=== PATIENT | female | born 1955 | race Caucasian/White ===

== ENCOUNTER 2017-01-20 17:55 | Emergency (ER) | payer OTHER ==
[~2017-01-20] VITALS: Ht 165.1 cm; Wt 102.3 kg
[~2017-01-20 17:55] MED LIST: ASPI-628 PO; CALC-721 PO; CHOL100045 PO; FISH OIL 500 M1 EAC2 PO; LACT1CAP65 PO; METR45CR TOP; RANI75TA21 PO; [UNRECOGNIZED DRUG - CODE] PO
[2017-01-20 18:05] VITALS: BP 156/98; PULSE 89; RESP 13; O2SAT 98
--- NOTE | 2017-01-20 19:03 | ED.REPORT ---
HPI-Abd Pain F 40 and Over Date of Service Jan 20, 2017 ED Provider: Dr. Kennedy A 61 year old female with a history of cholecystectomy presents to the ED from complaining of RUQ abdominal pain onset 2 weeks ago. In the last 24 hours, she has begun to experience a constant gassy, pressure-like feeling in her lower abdomen. She reports baseline intermittent RUQ abdominal pain every since her cholecystectomy 2 years ago, which she takes Ranitidine for. thought that she might have diverticulitis, however the patient denies any history of diverticulitis. Nursing Notes Stated Complaint: ABDOMINAL PAIN SENT FROM URGENT CARE Chief Complaint: Female Abdominal Pain Nursing Notes Reviewed: Yes Allergies: Coded Allergies: omeprazole (Verified Allergy, Mild, ITCHING, 01/20/17) atropine (Unverified Adverse Reaction, Severe, JITTERY, 12/27/14) ciprofloxacin (Unverified Adverse Reaction, Severe, nervous, edgy, 12/27/14 ) diphenoxylate (Unverified Adverse Reaction, Severe, JITTERY, 12/27/14) Scheduled Aspirin (Aspir 81) 81 Mg Tablet.dr 81 MG PO DAILY Calcium Carbonate/Vitamin D3 (Calcium 500 + D Tablet) 1 Each Tablet 1 EACH PO DAILY Calcium Polycarbophil (Fiber Tabs) 625 Mg Tablet 625 MG PO DAILY 1-3 TABS/DAY Cholecalciferol (Vitamin D3) (Vitamin D) 1,000 Unit Capsule 1,000 UNIT PO DAILY Lactobacillus Acidophilus (Probiotic) 1 Each Capsule 1 EACH PO DAILY Metronidazole (Metronidazole Cream) 45 Gm Cream..g. 1 APPLIC TOP BID 0.75% Ranitidine (Zantac OTC) 75 Mg Tablet 75 MG PO BID [place] Oil/[place]-3 Fatty Acids (Fish Oil 500 mg Softgel) 1 Each Capsule 1 EACH PO DAILY General Time Seen by MD: 19:03 Chief Complaint Abdominal pain Hx Obtained From: Patient Sudden in Onset?: No Onset Occurred: More than a week ago... (2 weeks) Symptom Duration: Since onset Location: : RUQ Severity: Current: Moderate Severity: Maximum: Moderate Recent Healthcare: Recent doctor visit (Patient was sent from ) Similar Sx Previous: No Past Medical History Past Medical History Denies history of diverticulitis. Reports intermittent RUQ abdominal pain ever since cholecystectomy 2 years ago. Thrombophlebitis. Cataracts. Reports: Hypertension, Denies: Diabetes mellitus Past Surgical History Breast reduction. S/P rotator cuff repair. Reports: Cholecystectomy (By Dr. Gonzalez. ), Denies: Hysterectomy Smoking History Never Smoker Social History originally from [place]. Alcohol Use: Denies alcohol use Drug Use: Denies drug use Ambulatory Status Independent Review of Systems Gassy feeling in lower abdomen. Constitutional: Denies: Chills, Fever Respiratory: Denies: Non-productive cough Cardiovascular: Denies: Chest pain GI: Reports: Abdominal pain Complete sys rev & neg: except as marked. Physical Exam Vital Signs Vital Signs (First) Date Time Temp Pulse Resp B/P Pulse Ox O2 Delivery O2 Flow Rate FiO2 01/20/17 18:05 36.7 89 13 156/98 98 Room Air Initial VS: Reviewed General/Constitutional: Awake, Alert Respiratory / Chest: Atraumatic, Breath sounds NL, Breath sounds = bilat, No respiratory distress, No rales, No rhonchi, No wheezing Cardiovascular: Heart rate NL, Regular rhythm, Heart sounds NL, No gallop, No murmurs, No rubs Abdomen: No guarding, No rebound Tenderness/Guarding/Rebound: Positive: Tender RUQ... Back: Atraumatic, Full range of motion Head / Eyes: Atraumatic, Normocephalic, PERRL, EOMI ENT: Atraumatic, Mucous membranes moist Skin: Atraumatic, Color NL, Warm, Dry Neurologic: Oriented X3, Speech NL Upper Extremity / MS: No swelling, No edema Lower Extremity / Pelvis / MS: No swelling, No edema Interpretation & Diagnostics Lab Results Interpretation Result Diagram: 01/20/17193101/20/171931 Test 01/20/17 19:32 White Blood Count 6.2th/mm3 (3.8-10.1) Red Blood Count 4.20mil/mm3 (3.90-5.20) Hemoglobin 13.0g/dL (12.0-15.6) Hematocrit 38.3% (35.0-46.0) Mean Corpuscular Volume 91.2fL (81-100) Mean Corpuscular Hemoglobin 31.0pg (27.0-35.0) Mean Corpuscular Hemoglobin Concent 33.9% (32.0-37.0) Red Cell Distribution Width 13.3% (12.3-15.4) Platelet Count 198bil/L (150-400) Neutrophils (%) (Auto) 68.7% (40-74) Lymphocytes (%) (Auto) 21.3% (14-46) Monocytes (%) (Auto) 8.4% (4-12) Eosinophils (%) (Auto) 1.1% (0-5) Basophils (%) (Auto) 0.3% (0-3) Urine Color Yellow (YELLOW) Urine Appearance Clear (CLEAR,HAZY) Urine pH 6.0 (5.0-8.0) Urine Specific [place] <1.005 (1.003-1.035) Urine Protein Negativemg/dL (NEG,TRACE) Urine Glucose (UA) Negativemg/dL (NEGATIVE) Urine Ketones 15mg/dL (NEGATIVE) Urine Occult Blood Negative (NEGATIVE) Urine Nitrite Negative (NEGATIVE) Urine Bilirubin Negative (NEGATIVE) Urine Urobilinogen Normalmg/dL (NORMAL) Urine Leukocyte Esterase Small (NEGATIVE) Urine RBC 0-2/hpf (0-2) Urine WBC 6-10/hpf (0-5) Urine Epithelial Cells Few/hpf (NONE-MOD) Urine Crystals None seen (NONE SEEN) Urine Bacteria None/hpf (NONE-FEW) Urine Hyaline Casts None/lpf (NONE) Urine Granular Casts None seen (NONE SEEN) Urine Waxy Casts None seen (NONE SEEN) Urine Red Blood Cell Casts None seen (NONE SEEN) Urine White Blood Cell Casts None seen (NONE SEEN) Urine Mucus None seen (None Seen) Urine Trichomonas None seen (NONE SEEN) Urine Yeast None (NONE SEEN) Urinalysis Comment None Sodium Level 139mEq/L (134-144) Potassium Level 3.8mEq/L (3.5-5.2) Chloride Level 101mEq/L (97-108) Carbon Dioxide Level 23mmol/L (18-29) Blood Urea Nitrogen 12mg/dL (8-27) Creatinine 0.79mg/dL (0.57-1.00) Estimat Glomerular Filtration Rate 106mL/min (>59) Glucose Level 121mg/dL (60-99) Calcium Level 9.5mg/dL (8.5-10.1) Total Bilirubin 0.7mg/dL (0.0-1.2) Aspartate Amino Transf (AST/SGOT) 17U/L (0-50) Alanine Aminotransferase (ALT/SGPT) 15U/L (0-32) Alkaline Phosphatase 87U/L (25-165) Troponin T < 0.010ug/L (0.0-0.011) Total Protein 7.2g/dL (6.4-8.4) Albumin 4.2g/dL (3.4-5.0) Lipase 25U/L (13-60) Hold Leal Top Tube Received (Received) ECG Interpretation ECG Interpretation: Normal. Time: 07:47 Interpreted by: ED physician CT Abd / Pelvis Interpretation IMPRESSION: 1. Diverticulosis and findings suspicious for nonperforated acute diverticulitis. 2. Normal appendix. These findings were discussed with Dr. Kennedy at 9:41 PM on 01/20/17. Dictated by: Ysabel Olson M.D. on 01/20/2017 at 21:38 Approved by: Ysabel Olson M.D. on 01/20/2017 at 21:42 Interpretation / Wet Read by: Interpret - Radiologist Re-Eval/Medical Decision Med Decision/Clinical Course Diverticulitis found on CT scan. I discussed with Jhoana hospitalization for IV antibiotics. She would prefer to try oral antibiotics. She has a benign abdomen without clinical peritonitis. She has a normal white blood cell count and no evidence of perforation or abscess formation. She has an excellent candidate for outpatient therapy. She received the first dose Rocephin and Flagyl number [place]. She will be placed on oral antibiotics and have close follow-up. I will contact her tomorrow. I Spoke with Jhoana via text. She is feeling much better. The pain is significantly improved. Just follow-up with her primary care tomorrow. (01/21/17 , 7:00 pm) Source of Hx: Old records Re-Evaluation/Progress #1: Time of Eval: 19:07 Re-Evaluation/Progress Note: Explained plan to perform CT. Re-Evaluation/Progress #2: Time of Eval: 19:10 Re-Evaluation/Progress Note: Gave patient water to drink. Re-Evaluation/Progress #3: Time of Eval: 22:00 Re-Evaluation/Progress Note: Rechecked patient who would like a trial of outpatient treatment, so she will get a dose of Rochefin. Re-Evaluation/Progress #4: Time of Eval: 23:38 Re-Evaluation/Progress Note: Rechecked patient, explained test results, diagnosis, and plan for discharge. Patient understands and agrees with the plan. All questions addressed. Counseled Regarding: Diagnosis, Lab results, Need for follow-up, When/why to return to ED Discharge & Departure Primary Impression: Diverticulitis Diverticulitis site: large intestine Diverticulitis bleeding: without bleeding Diverticulitis complication: without perforation or abscess Qualified Code: K57.32 - Diverticulitis of large intestine without perforation or abscess without bleeding Disposition: Home Discharge Condition All VS Reviewed: Yes Condition: Stable Patient Instructions: Acute Abdominal Pain (ED), Diverticulitis (ED) Additional Instructions: The CAT scan demonstrated diverticulitis. This is an infection of the diverticulum in your bowel. Read the aftercare instructions given. Take Augmentin twice daily for 10 days. Take 1-2 [place] every 6 hours as needed for severe pain. Do not drive or drink alcohol or consume acetaminophen while taking the [place]. If you have any pain tomorrow, fever, or worsening symptoms then you will need to be admitted for IV antibiotics. Otherwise I would like you to be seen by your primary care physician within 48 hours. Call tomorrow to set this up. It was very nice meeting you. Do not hesitate to return if any problems or any worsening or new symptoms. Referrals: Nickie Nelson (PCP) Chad Attestation Portions of this note were transcribed by Murali Snyder. I, Dr. Kennedy personally performed the history, physical exam and medical decision-making; I reviewed and confirmed the accuracy of the information in the transcribed note. Signed by: Chad Alicia, 01/21/2017, 0216. copies to: Nickie Nelson Todd P DO Jan 20, 2017 19:03 Murali Snyder Jan 20, 2017 19:11
[2017-01-20 19:45] LABS: BASOPHILS % (AUTO) 0.3 % (0-3); EOSINOPHILS % (AUTO) 1.1 % (0-5); MONOCYTES % (AUTO) 8.4 % (4-12); Mean Corpuscular Volume 91.2 fL (81-100); NEUTROPHILS % (AUTO) 68.7 % (40-74); Platelet Count 198 bil/L (150-400)
[2017-01-20 20:07] LABS: APPEARANCE,URINE CLEAR (CLEAR,HAZY); COLOR,URINE YELLOW (YELLOW); OCCULT BLOOD,URINE NEGATIVE (NEGATIVE); UROBILINOGEN,URINE NORMAL (NORMAL)
[2017-01-20 20:11] LABS: TROPONIN T < 0.010 ug/L (0.0-0.011)
[2017-01-20 20:38] LABS: Lipase 25 U/L (13-60)
[2017-01-20 21:42] VITALS: BP 138/82; PULSE 79; RESP 16; O2SAT 97
--- NOTE | 2017-01-20 21:43 | DRSVH ---
PROCEDURE: CT ABDOMEN AND PELVIS WITH CONTRAST ([id number]) INDICATIONS: rlq pain TECHNIQUE: After the administration of intravenous contrast, 5 mm thick sections acquired from the diaphragm to the symphysis. 5 mm coronal and sagittal reformats were acquired. For radiation dose reduction, the following was used: automated exposure control, adjustment of mA and/or kV according to patient siz e. COMPARISON: None. FINDINGS: Image quality: Excellent. ABDOMEN: Lung bases: Lung bases are clear. Heart size is normal. Solid organs: Liver and spleen are normal in size and enhancement. Gallbladder is surgically absent . Biliary system is non dilated. Pancreas enhances normally. No adrenal nodules. Kidneys demonstr ate normal size and enhancement, without hydronephrosis. A subcentimeter low density cortical lesion is present within the lower pole the right kidney which likely represents a simple renal cyst but is incompletely characterized. Peritoneum and bowel: Bowel loops demonstrate normal wall thickness and caliber. There are scattered sigmoid colon diverticula or outpouchings. Focal pericolonic fat stranding or mucosal thickening is present within the superior sigmoid colon (series 2, image 63). No discrete fluid collection or pneum operitoneum. The colon demonstrates otherwise normal caliber and wall thickness. The appendix is thin walled gas filled. No free fluid or air. Nodes and vessels: No retroperitoneal or mesenteric adenopathy by size criteria. Aorta and inferior vena cava are normal in size. Miscellaneous: No ventral hernias. PELVIS: Genitourinary: Bladder wall thickness is normal. The uterus is diminutive and unremarkable. Ovaries are unremarkable. Miscellaneous: No inguinal hernias or adenopathy. Bones: No suspicious bony lesions. No vertebral body compression fractures. IMPRESSION: 1. Diverticulosis and findings suspicious for nonperforated acute diverticulitis. 2. Normal appendix. These findings were discussed with Dr. Kennedy at 9:41 PM on 01/20/17. Dictated by: Ysabel Olson M.D. on 01/20/2017 at 21:38 Approved by: Ysabel Olson M.D. on 01/20/2017 at 21:42
[2017-01-20] MEDS ORDERED: metroNIDAZOLE Inj 500 MG in IV Premix 1 EACH IV ONE (21:45)
[2017-01-20] MEDS ORDERED: cefTRIAXone Inj 2,000 MG in Dextrose 5% Minibag Plus 50 ML IV ONE (21:45)
[2017-01-20] MEDS ORDERED: _HYDROcodone/APAP 5-325 mg Tablet PO PRN (23:20)
[2017-01-21 00:07] VITALS: BP 172/98; PULSE 79; RESP 18; O2SAT 99
== END 2017-01-21 00:08 | disposition home or self-care (01) ==
LOC: SED 17:55
DX: K57.32 Diverticulitis of large intestine without perforation or abscess without bleeding (principal); I10 Essential (primary) hypertension; Z88.6 Allergy status to analgesic agent; Z88.1 Allergy status to other antibiotic agents; Z79.82 Long term (current) use of aspirin
CPT/HCPCS: 74177; 80053; 81001; 83690; 84484; 85025; 93005; 96365; 96368; 99285; J0696; Q9967

== ENCOUNTER 2017-01-28 14:12 | Emergency (ER) | payer OTHER ==
[~2017-01-28] VITALS: Ht 165.1 cm; Wt 97.7 kg
[2017-01-28 14:17] VITALS: BP 158/101; PULSE 79; RESP 18; O2SAT 99
--- NOTE | 2017-01-28 15:32 | ED.REPORT ---
HPI-General Illness Date of Service Jan 28, 2017 ED Provider: Alex Butcher MD Patient is a generally healthy 61-year-old female seen approximately one week ago at which time she was diagnosed with uncomplicated diverticulitis by CT scan who presents to the ED complaining of right sided abdominal pain onset 2-3 days ago. Since going home she has been doing relatively well and is currently taking Augmentin as she is allergic to clindamycin. Laboratory studies were relatively unremarkable except for leukocytosis of 13. She reports that over the last couple days she has advanced her diet from [place] this last soft food to regular foods as she was feeling quite a bit better. Today she developed some sharp/vague pain about the right side of her abdomen that occurred while twisting. Here in the emergency room the pain is completely resolved. She denies any nausea, vomiting, fevers, chills, chest pain, shortness of breath, pain with eating, diarrhea or bloody stools. She denies any dysuria or urinary frequency. She states that the pain lasted for several minutes but now has completely resolved. She has no other complaints at this time. She admits that she is not taking any stool softeners. Nursing Notes Stated Complaint: NEW PAIN WITH DIVERTICULITIS Chief Complaint: Female Abdominal Pain Nursing Notes Reviewed: Yes Allergies: Coded Allergies: omeprazole (Verified Allergy, Mild, ITCHING, 01/20/17) atropine (Unverified Adverse Reaction, Severe, JITTERY, 12/27/14) ciprofloxacin (Unverified Adverse Reaction, Severe, nervous, edgy, 12/27/14 ) diphenoxylate (Unverified Adverse Reaction, Severe, JITTERY, 12/27/14) Scheduled Aspirin (Aspir 81) 81 Mg Tablet.dr 81 MG PO DAILY Calcium Carbonate/Vitamin D3 (Calcium 500 + D Tablet) 1 Each Tablet 1 EACH PO DAILY Calcium Polycarbophil (Fiber Tabs) 625 Mg Tablet 625 MG PO DAILY 1-3 TABS/DAY Cholecalciferol (Vitamin D3) (Vitamin D) 1,000 Unit Capsule 1,000 UNIT PO DAILY Lactobacillus Acidophilus (Probiotic) 1 Each Capsule 1 EACH PO DAILY Metronidazole (Metronidazole Cream) 45 Gm Cream..g. 1 APPLIC TOP BID 0.75% Ranitidine (Zantac OTC) 75 Mg Tablet 75 MG PO BID [place] Oil/[place]-3 Fatty Acids (Fish Oil 500 mg Softgel) 1 Each Capsule 1 EACH PO DAILY General Time Seen by MD: 15:30 Chief Complaint Abdominal pain Hx Obtained From: Patient Arrived By: Walk-in Onset Occurred: 3 days ago Symptom Duration: Since onset Location: : Abdomen Quality: Painful Severity: Current: Moderate Severity: Maximum: Moderate Recent Healthcare: Recent doctor visit Similar Sx Previous: Yes Past Medical History Past Medical History Denies history of diverticulitis. Reports intermittent RUQ abdominal pain ever since cholecystectomy 2 years ago. Thrombophlebitis. Cataracts. Reports: Hypertension Past Surgical History Breast reduction. S/P rotator cuff repair. Reports: Cholecystectomy Smoking History Never Smoker Social History originally from [place]. Alcohol Use: Denies alcohol use Drug Use: Denies drug use Other Social History: Local resident Ambulatory Status Independent Review of Systems Full Review of Systems Constitutional: Denies: Chills, Fever Respiratory: Denies: Shortness of breath Cardiovascular: Denies: Chest pain GI: Denies: Bloody/tarry stool, Diarrhea, Nausea, Vomiting Female: Denies: Dysuria, Urinary frequency Complete sys rev & neg: except as marked. Physical Exam Vital Signs Vital Signs Date Time Temp Pulse Resp B/P Pulse Ox O2 Delivery O2 Flow Rate FiO2 01/28/17 16:11 36.6 79 18 158/101 99 Room Air 01/28/17 14:17 36.6 79 18 158/101 99 Room Air Initial VS: Reviewed Extremities: Vascular intact, Neuro intact, No swelling, No tenderness Skin: Warm, Dry, No cyanosis Neurologic: Alert, Oriented, Nonfocal Psychiatric: Mood/affect normal, Behavior normal, Normal thought content General/Constitutional: Awake, Alert, No acute distress Head / Eyes: Normocephalic, PERRL, EOMI ENT: Airway patent, Mucous membranes moist Neck: Supple, Full range of motion Respiratory / Chest: Breath sounds NL, Breath sounds = bilat, No respiratory distress, No rales, No rhonchi, No wheezing Cardiovascular: Heart rate NL, Regular rhythm, Heart sounds NL, No gallop, No murmurs, No rubs Abdomen: Soft, Non-tender, No guarding, No rebound, No distention Tenderness/Guarding/Rebound: Negative: Rigid to palpation Back: No midline vertebral tend, No CVA tenderness Interpretation & Diagnostics Lab Results Interpretation Result Diagram: 01/28/17 1542 01/28/17 1542 Test 01/28/17 15:42 White Blood Count 3.9th/mm3 (3.8-10.1) Red Blood Count 4.45mil/mm3 (3.90-5.20) Hemoglobin 13.6g/dL (12.0-15.6) Hematocrit 40.4% (35.0-46.0) Mean Corpuscular Volume 90.8fL (81-100) Mean Corpuscular Hemoglobin 30.6pg (27.0-35.0) Mean Corpuscular Hemoglobin Concent 33.7% (32.0-37.0) Red Cell Distribution Width 12.9% (12.3-15.4) Platelet Count 241bil/L (150-400) Neutrophils (%) (Auto) 60.9% (40-74) Lymphocytes (%) (Auto) 26.9% (14-46) Monocytes (%) (Auto) 9.6% (4-12) Eosinophils (%) (Auto) 1.3% (0-5) Basophils (%) (Auto) 1.0% (0-3) Sodium Level 140mEq/L (134-144) Potassium Level 4.1mEq/L (3.5-5.2) Chloride Level 101mEq/L (97-108) Carbon Dioxide Level 24mmol/L (18-29) Blood Urea Nitrogen 12mg/dL (8-27) Creatinine 0.79mg/dL (0.57-1.00) Estimat Glomerular Filtration Rate 106mL/min (>59) Glucose Level 119mg/dL (60-99) Calcium Level 9.8mg/dL (8.5-10.1) Magnesium Level 2.1mg/dL (1.6-2.6) Total Bilirubin 0.4mg/dL (0.0-1.2) Aspartate Amino Transf (AST/SGOT) 35U/L (0-50) Alanine Aminotransferase (ALT/SGPT) 47U/L (0-32) Alkaline Phosphatase 81U/L (25-165) Total Protein 7.0g/dL (6.4-8.4) Albumin 4.1g/dL (3.4-5.0) Lipase 89U/L (13-60) Hold Leal Top Tube Received (Received) Re-Eval/Medical Decision Med Decision/Clinical Course Patient is a generally healthy 61-year-old female seen approximately one week ago at which time she was diagnosed with uncomplicated diverticulitis by CT scan who presents to the ED complaining of right sided abdominal pain onset 2-3 days ago. Since going home she has been doing relatively well and is currently taking Augmentin as she is allergic to clindamycin. Laboratory studies were relatively unremarkable except for leukocytosis of 13. She reports that over the last couple days she has advanced her diet from [place] this last soft food to regular foods as she was feeling quite a bit better. Today she developed some sharp/vague pain about the right side of her abdomen that occurred while twisting. Here in the emergency room the pain is completely resolved. She denies any nausea, vomiting, fevers, chills, chest pain, shortness of breath, pain with eating, diarrhea or bloody stools. She denies any dysuria or urinary frequency. She states that the pain lasted for several minutes but now has completely resolved. She has no other complaints at this time. She admits that she is not taking any stool softeners. Here in the emergency department the patient is afebrile, hemodynamically stable and in no apparent distress. Examination of the abdomen is completely benign. I reviewed the patient's previous workup and imaging studies. Based upon her presentation today I do not feel that repeat imaging or laboratory analysis is likely to be of much benefit. The patient's presentation is quite benign and I suspect that her pain is either related to musculoskeletal sprain versus too rapid progression of her diet. She is advised to continue the antibiotics that she was prescribed and takes stool softeners. She is advised to here to a bland diet. I discussed with her the potential complications associated with diverticulitis such as rupture and abscess formation. I expressed that at this moment her presentation is not suggestive thereof but that she should return immediately should she develop recurrent/worsening abdominal pain, bloody stools, fevers, vomiting or other concerning signs or symptoms. Prior to discharge follow-up and return precautions were reviewed in detail with the patient who verbalized understanding and agreement with the plan. The patient was discharged in stable condition. Source of Hx: Old records Time of Eval: 15:40 Re-Evaluation/Progress Note: Rechecked the patient. No acute problems identified on labs. Pain is likely due to her ongoing diverticulitis. Patient understands and agrees with the plan to be discharged home. Discharge instructions and follow-up discussed. All questions were addressed. Return to the ED warnings given. Counseled Regarding: Diagnosis, Lab results, Need for follow-up, When/why to return to ED Discharge & Departure Primary Impression: Diverticulitis Diverticulitis site: unspecified part of intestinal tract Diverticulitis bleeding: without bleeding Diverticulitis complication: without perforation or abscess Qualified Code: K57.92 - Diverticulitis of intestine, part unspecified, without perforation or abscess without bleeding Additional Impression: Abdominal pain Abdominal location: generalized Qualified Code: R10.84 - Generalized abdominal pain Disposition: Home Discharge Condition All VS Reviewed: Yes Condition: Stable Patient Instructions: Diverticulitis (ED) Additional Instructions: Thank you for seeking care at the emergency room. It is difficult for us to make definitive diagnoses in the ED but we believe that you are experiencing pain related to your diverticulitis. Our primary goal today in the ED was to evaluate you for any like-threatening conditions. Your evaluation was reassuring. I recommend that you adhere to a very bland soft/liquid diet and use MiraLAX as directed. You should follow-up with your primary doctor in the next week. You should return to the ED immediately if you develop any recurrent/worsening pain, bloody stool, fevers, vomiting, cough, shortness of breath, chest pain, lightheadedness, weakness, or any other concerning signs or symptoms. Thank you for letting us partake in your care today. Referrals: Nickie Nelson (PCP) Scribe Attestation Portions of this note were transcribed by Elida Calle. I, Dr. Butcher personally performed the history, physical exam and medical decision-making; I reviewed and confirmed the accuracy of the information in the transcribed note. Signed by: Chad Garsia, 01/28/2017 0032 copies to: Nickie Nelson Beck O MD Jan 28, 2017 15:32 Elida Calle Jan 29, 2017 00:30
[2017-01-28 15:51] LABS: EOSINOPHILS % (AUTO) 1.3 % (0-5); MONOCYTES % (AUTO) 9.6 % (4-12); Mean Corpuscular Hemoglobin 30.6 pg (27.0-35.0); Mean Corpuscular Volume 90.8 fL (81-100); NEUTROPHILS % (AUTO) 60.9 % (40-74); Platelet Count 241 bil/L (150-400)
[2017-01-28 16:11] VITALS: BP 158/101; PULSE 79; RESP 18; O2SAT 99
[2017-01-28 16:14] LABS: Magnesium 2.1 mg/dL (1.6-2.6)
== END 2017-01-28 15:50 | disposition home or self-care (01) ==
LOC: SED 14:12
DX: K57.92 Diverticulitis of intestine, part unspecified, without perforation or abscess without bleeding (principal); R10.84 Generalized abdominal pain; I10 Essential (primary) hypertension; Z88.8 Allergy status to other drugs, medicaments and biological substances; Z79.82 Long term (current) use of aspirin

== ENCOUNTER 2017-03-10 12:22 | Day surgery (SDC) | payer OTHER ==
[~2017-03-10] VITALS: Ht 165.1 cm; Wt 97.5 kg
[~2017-03-10 12:22] MED LIST changes: +0.9% Sodium Chloride 1,000 ML IV SCH; +Sodium Chloride LOK Flush 10 mL Syringe IV PRN
[2017-03-10 13:09] VITALS: BP 138/84; PULSE 74; RESP 17; O2SAT 98
[2017-03-10] MEDS ORDERED: fentaNYL-PF 50 mCg/mL 2 mL Inj ONE (13:29)
--- NOTE | 2017-03-10 14:05 | PCM.ENDCOL ---
Colonoscopy Date of Service: March 10, 2017 Physician Fabiano Fournier MD Pre Procedure Diagnosis: Screening and family history of colon cancer history of diverticulitis Post Procedure Dx & Findings: Diverticuli hemorrhoids Procedure Colonoscopy PROCEDURE IN DETAIL: Prep adequate Withdrawal time 9 minutes After unremarkable rectal examination the Olympus video colonoscope was inserted patient's anal canal and was advanced to cecum. Landmarks were identified including the ileocecal valve and appendiceal orifice. Scope was withdrawn systematically. Visualized colonic mucosa showed healthy shiny mucosa with normal healthy-appearing vasculature. Few medium-size diverticula noted in the sigmoid colon. In the rectum retroflexion was done which showed hemorrhoids. Anal canal was inspected carefully on the way out and hemorrhoids noted. Impression Family history of colon cancer Diverticula Hemorrhoids Recommendation Repeat colonoscopy in 5 years Diverticula diet Presedation Assessment Risks and Benefits Informed consent was obtained from the patient after all risks and benefits including but not limited to drug reaction, infection, pain, bleeding, perforation, as well as alternatives were discussed. Patient monitoring Continuous pulse oximetry, cardiac monitoring, blood pressure monitoring, IV access, and oxygen at 2L per nasal cannula. Periprocedural Fentanyl: Fentanyl 100mcg Incrementally Midazolam: Midazolam 4mg Incrementally Complications There were no periprocedural complications identified. Post Procedure Plan Post Procedure Recommendations 1. Restrict activities today. 2. Resume normal activities in the morning. 3. Resume medications. 4. Patient informed of normal post procedure side effects as bloating, drowsiness, blood streaking in the stool. 5. average risk CRCS. If colon polyps come back as: -Hyperplastic- can repeat colonoscopy in 10 years -Tubular adenoma- repeat colonoscopy in 5 years -Tubulovillous/villous adenoma- repeat colonoscopy in 3 years -If any dysplasia- return to clinic as soon as possible 6. Please don't hesitate to call me with any questions. Fabiano Fournier MD March 10, 2017 14:05
[2017-03-10 14:06] VITALS: BP 113/53; PULSE 69; RESP 16; O2SAT 100
[2017-03-10 14:20] VITALS: BP 102/58; PULSE 67; RESP 14; O2SAT 100
== END 2017-03-10 23:59 | disposition home or self-care (01) ==
LOC: END 12:22
PROVIDERS: ATTEND Internal Medicine
DX: Z12.11 Encounter for screening for malignant neoplasm of colon (principal); Z80.0 Family history of malignant neoplasm of digestive organs; K57.92 Diverticulitis of intestine, part unspecified, without perforation or abscess without bleeding; K64.9 Unspecified hemorrhoids; E02 Subclinical iodine-deficiency hypothyroidism; Z79.82 Long term (current) use of aspirin
CPT/HCPCS: G0105; G0500; J3010; J7030